=== PATIENT | female | born 1990 ===

== ENCOUNTER 2017-05-17 23:05 | Emergency (ER) | payer OTHER ==
[2017-05-17 23:13] VITALS: O2SAT 99
[2017-05-17] MEDS ORDERED: Lactated Ringer's 1,000 ML IV STA (23:33)
--- NOTE | 2017-05-17 23:36 | ED PDOC ---
HPI: General Adult Time Seen by Provider: 05/17/17 23:19 Chief Complaint (Nursing): GI Problem Chief Complaint (Provider): nausea/vomiting History Per: Patient History/Exam Limitations: no limitations Onset/Duration Of Symptoms: Days (2) Current Symptoms Are (Timing): Still Present Additional History Per: Patient Additional Complaint(s): 27 y/o female, approximately 12 weeks gestation, presents with nausea/vomiting x 2 days. Patient notes symptoms to present on-and-off for the past one month; prescribed Diclegis by Manager Story and states sometimes it works and sometimes it doesn't. Denies fever, dizziness, extremity numbness/weakness, chest pain, shortness of breath, palpitations, abdominal pain, vaginal bleeding/discharge. Past Medical History Reviewed: Historical Data, Nursing Documentation, Vital Signs Vital Signs: Last Vital Signs Temp 98.3 F 05/17/17 23:09 Pulse 90 05/17/17 23:09 Resp 17 05/17/17 23:09 BP 158/88 H 05/17/17 23:09 Pulse Ox 99 05/17/17 23:36 - Medical History PMH: No Chronic Diseases - Family History Family History: States: Unknown Family Hx - Living Arrangements Living Arrangements: With Family - Home Medications Home Medications: Ambulatory Orders Medication Instructions Recorded Doxylamine/Pyridoxine HCl (B6) 1 - 2 each PO DAILY PRN #30 04/10/17 [Diclegis Dr 10-10 mg Tablet] tablet.dr - Allergies Allergies/Adverse Reactions: Allergies Allergy/AdvReac Type Severity Reaction Status Date / Time No Known Allergies Allergy Verified 04/09/17 20:12 Review of Systems ROS Statement: Except As Marked, All Systems Reviewed And Found Negative Gastrointestinal: Positive for: Nausea, Vomiting Physical Exam - Reviewed Nursing Documentation Reviewed: Yes Vital Signs Reviewed: Yes - Physical Exam Appears: Positive for: Well, Non-toxic, Uncomfortable (vomiting) Head Exam: Positive for: ATRAUMATIC, NORMAL INSPECTION, NORMOCEPHALIC Skin: Positive for: Normal Color Eye Exam: Positive for: Normal appearance ENT: Positive for: Normal ENT Inspection Cardiovascular/Chest: Positive for: Regular Rate, Rhythm Respiratory: Positive for: Normal Breath Sounds Gastrointestinal/Abdominal: Positive for: Normal Exam, Bowel Sounds, Soft. Negative for: Tenderness Back: Positive for: Normal Inspection Extremity: Positive for: Normal ROM Neurologic/Psych: Positive for: Alert (age appropriate) - Laboratory Results Result Diagrams: 05/18/17 01:07 05/18/17 01:07 - ECG O2 Sat by Pulse Oximetry: 99 - Progress ED Course And Treament: labs, IV fluids, IV reglan On re-eval, patient vomiting. IV zofran ordered 3:30 Patient states she is feeling better. Tolerating PO. Patient educated on findings, discharged with instructions to follow up Manager Story in 2-3 days. Continue Diclegis. Return precautions given. Disposition - Clinical Impression Clinical Impression: Hyperemesis gravidarum - Patient ED Disposition Is Patient to be Admitted: No Counseled Patient/Family Regarding: Studies Performed, Diagnosis, Need For Followup - Disposition Disposition: Routine/Home Disposition Time: 03:37 Condition: IMPROVED Instructions: Hyperemesis Gravidarum (ED) Forms: [employer] (Georgian)
[2017-05-18 01:11] LABS: BASO % 0.2 % (0.0-2.0); HEMATOCRIT 41.3 % (34.0-47.0); LYMPH # 1.1 K/uL (1.0-4.3); LYMPH % 7.5 % (20.0-40.0); MEAN CELL VOLUME 84.9 fl (81.0-99.0); MEAN CORPUSCULAR HEMOGLOBIN 27.8 pg (27.0-31.0); MEAN CORPUSCULAR HGB CONC 32.7 g/dL (33.0-37.0); MONO # 0.3 K/uL (0.0-0.8); MONO % 1.8 % (0.0-10.0); NEUT # 13.5 K/uL (1.8-7.0); NEUT % 90.5 % (50.0-75.0); PLATELET COUNT 208 K/uL (130-400); RED CELL DISTRIBUTION WIDTH 14.9 % (11.5-14.5); WHITE BLOOD COUNT 14.9 K/uL (4.8-10.8)
[2017-05-18 01:29] LABS: ALB/GLOB RATIO 1.3 (1.0-2.1); ALKALINE PHOSPHATASE 59 U/L (38-126); ALT/SGPT 42 U/L (9-52); AST/SGOT 20 U/L (14-36); BILIRUBIN,TOTAL 0.4 mg/dl (0.2-1.3); BLOOD UREA NITROGEN 8 mg/dl (7-17); CALCIUM 9.6 mg/dL (8.4-10.2); CARBON DIOXIDE 21 mmol/L (22-30); CHLORIDE 104 mmol/L (98-107); GFR AFRICAN-AMERICAN > 60; GLUCOSE,RANDOM 108 mg/dL (65-105); POTASSIUM 4.1 MMOL/L (3.6-5.0); SODIUM 136 mmol/l (132-148); TOTAL PROTEIN 7.8 G/DL (6.3-8.2)
[2017-05-18] MEDS ORDERED: Lactated Ringer's 1,000 ML IV STA (01:54)
[2017-05-18 02:05] LABS: NEUTROPHIL 90 % (42-75); TOTAL CELLS COUNTED 100
[2017-05-18 03:56] VITALS: BP 125/61; PULSE 83; RESP 18; TEMP 97.8
== END 2017-05-18 03:46 | disposition home or self-care (01) ==
LOC: H.ER 23:05
DX: O21.0 Mild hyperemesis gravidarum (principal); Z3A.12 12 weeks gestation of pregnancy
CPT/HCPCS: 80053; 85025; J2405; J2765; J7120